=== PATIENT | male | born 1985 | race Caucasian/White ===

== ENCOUNTER 2022-07-01 09:38 | Emergency (ER) | payer OTHER, SELFPAY ==
[2022-07-01 09:49] VITALS: BP 187/106; PULSE 50; RESP 16; TEMP 36.9; O2SAT 97; BMI 28.0
--- NOTE | 2022-07-01 10:41 | ED.BACK ---
HPI - Back Pain/Injury General Chief Complaint: Back Pain/Injury Stated Complaint: right leg injury Time Seen by Provider: 07/01/22 10:32 History of Present Illness HPI Narrative: Patient is a healthy 37-year-old male who presents with back pain and right leg numbness. 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 Since then he has had sharp shooting numbness and tingling down his right leg all the way into the arch of his foot. He denies any severe weakness has pain in his gluteus muscle no fever or chills. No loss of urine or stool. No history of IVDA. He was initially seen and evaluated [facility] he was given oxycodone Tylenol Motrin he says it does not seem to be helping. He can not get any sleep he is up every hour. Related Data Previous Rx's Medication Instructions Recorded diazepam 5 mg tablet (Valium) 5 mg PO Q12HR PRN muscle spasm #14 07/01/22 tabs gabapentin 300 mg capsule 300 mg PO BEDTIME #30 caps 07/01/22 lidocaine 5 % topical patch 1 patch topical DAILY PRN pain #30 07/01/22 ea Exam Initial Vital Signs Initial Vital Signs: Vital Signs Temperature 98.4 F 07/01/22 09:49 Pulse Rate 50 L 07/01/22 09:49 Respiratory Rate 16 07/01/22 09:49 Blood Pressure 187/106 H 07/01/22 09:49 Pulse Oximetry 97 07/01/22 09:49 Oxygen Delivery Method 07/01/22 09:49 GENERAL: Well-appearing, well-nourished and in no acute distress. CARDIOVASCULAR: peripheral pulses in tact, cap refill <2 sec RESPIRATORY: No respiratory distress, speaks in full sentences without difficulty ABDOMEN: Soft, nontender, no guarding or rebound BACK: No midline or vertebral tenderness tender right lumbar area and into right buttock. Slightly decreased sensation in right leg EXTREMITIES: Normal range of motion, no clubbing or edema. Neurovascularly intact NEUROLOGICAL: Cranial nerves II through XII grossly intact. Normal gait and speech. SKIN: Warm, dry, no petechiae, no rashes or lesions. Course Orders Ordered: Discontinued Medications Diazepam (Diazepam 5 Mg Tablet) 10 mg PO NOW ONE Stop: 07/01/22 10:51 Last Admin: 07/01/22 10:57 Dose: 10 mg Documented By: RB Ketorolac Tromethamine (Ketorolac 30 Mg/Ml Vial) 30 mg IM NOW ONE Stop: 07/01/22 10:51 Last Admin: 07/01/22 10:57 Dose: 30 mg Documented By: RB Vital Signs Vital signs: Vital Signs - 8 hr 07/01/22 12:09 Temperature 98.3 F Pulse Rate 65 Respiratory Rate 16 Blood Pressure 182/98 H Pulse Oximetry 97 Oxygen Delivery Method Room Air MDM - Back Pain/Injury MDM Narrative Medical decision making narrative: Patient 37-year-old male with 4 days of back injury and pain with sciatic like symptoms down his right leg. He has no weakness no change in bowel or bladder habits or other red flag symptoms to suggest cauda equina epidural abscess or other causes of back pain. He is requesting better pain management and is happy to follow-up as an outpatient for MRI as needed. Discharge Plan Departure Patient Disposition: Home Clinical Impression: Strain of lumbar region Instructions: DI for Back Pain With Sciatica Activity Restrictions/Additional Instructions: *You have been diagnosed with back pain with sciatica *What to do: At this time recommend stretching light activity heating pad. You may require an outpatient MRI if your symptoms continue however if her symptoms worsen please return to the emergency department *Continue to take medications as directed Lidocaine patch 12 hours at a time then removed Gabapentin 300 mg at nighttime Valium 5 mg every 12 hours Motrin 600 mg every 6 hours Tylenol 1000 mg every 6 hours *Follow up with your primary care provider in 2-3 days or call [phone] *Return to ER if you should have increasing weakness numbness tingling loss of urine loss of stool or any new, worsening or concerning symptoms CONTROLLED SUBSTANCE DISCHARGE (Narcotoic/benzodiazepine/Flexeril/Phenergan) 1. You have been prescribed narcotic medications, it does have acetaminophen/Tylenol/paracetamol in it, DO NOT TAKE MORE THAN 4,00mg in 24 hours of Tylenol. TRAMADOL DOES NOT CONTAIN TYLENOL 2. Please understand that we cannot provide further refills of narcotics, benzodiazepines or controlled substances through the ED and her pain management will need to be through your provider. 3. While on these medications you cannot drive or operate heavy machinery. 4. You cannot sign legal documents or perform any duties such as this. 5. As long as you're taking opiate pain medications he should also be taking a stool softener such as Colace, Dulcolax, MiraLAX or prune juice, to help avoid constipation. Prescriptions: New lidocaine 5 % adhesive patch,medicated 1 patch topical DAILY PRN (Reason: pain) Qty: 30 0RF Rx Instructions: leave on most painful area for up to 12 hrs diazepam [Valium] 5 mg tablet 5 mg PO Q12HR PRN (Reason: muscle spasm) Qty: 14 0RF gabapentin 300 mg capsule 300 mg PO BEDTIME Qty: 30 0RF
[2022-07-01] MEDS: KETOROLAC 30 MG/ML VIAL IM (10:57)
[2022-07-01] MEDS: diazePAM 5 MG TABLET 10 MG PO (10:57)
[2022-07-01 12:09] VITALS: BP 182/98; PULSE 65; RESP 16; TEMP 36.8; O2SAT 97
== END 2022-07-01 12:10 | disposition home or self-care (01) ==
PROVIDERS: Emergency Provider Emergency Medicine
DX: S39.012A Strain of muscle, fascia and tendon of lower back, initial encounter (principal); Y93.F2 Activity, caregiving, lifting; Y99.0 Civilian activity done for income or pay
CPT/HCPCS: 96372; 99283; J1885